=== PATIENT | female | born 1995 | race African-American/Black ===

== ENCOUNTER 2019-04-13 12:22 | Inpatient (IN) | payer OTHER, MEDICAID ==
[~2019-04-13] VITALS: Ht 170.2 cm; Wt 68.5 kg
[2019-04-13 13:14] LABS: BASOPHILS % 0.3 % (0.0-2.0); EOSINOPHILS % 0.2 % (0.0-5.0); HEMATOCRIT. 34.3 % (36.0-48.0); HEMOGLOBIN. 12.1 g/dL (12.0-16.0); LYMPHOCYTES % 23.8 % (20.0-50.0); MEAN CORPUSCULAR HEMOGLOBIN 31.3 pg (28.0-32.0); MEAN PLATELET VOLUME 6.6 fl (7.4-10.4); MONOCYTES % 8.2 % (2.0-8.0); NEUTROPHILS % 67.5 % (40.0-76.0); PLATELET 307 x1000/uL (130-400); RED BLOOD CELL COUNT 3.86 mill/uL (4.2-5.4); RED CELL DISTRIBUTION WIDTH 13.4 % (11.6-14.6)
[2019-04-13 13:18] LABS: CHLORIDE 108 mEq/L (98-107)
[2019-04-13 14:05] VITALS: BP 114/58
[2019-04-13 15:15] VITALS: BP 108/54
[2019-04-13 16:22] LABS: CLARITY URINE TURBID (CLEAR); COLOR URINE RED (YELLOW); KETONES URINE NEGATIVE (NEGATIVE); LEUKOCYTE ESTERASE URINE 2+ (NEGATIVE); NITRITE URINE POSITIVE (NEGATIVE); OCCULT BLOOD URINE 3+ (NEGATIVE); PH URINE >=9.0 (4.5-8.0); PROTEIN URINE 2+ (NEGATIVE); SPECIFIC GRAVITY URINE 1.007 (1.005-1.030); UROBILINOGEN URINE 0.2 E.U./dL (0.2-1.0)
[2019-04-13] MEDS ORDERED: IBUPROFEN 400MG TABLET PO PRN (17:00)
[2019-04-13] MEDS ORDERED: IBUPROFEN 800MG TABLET PO PRN (17:00)
[2019-04-13 18:44] LABS: HEPATITIS B SURFACE ANTIGEN NEGATIVE
[2019-04-13] MEDS: CEPHALEXIN 250MG CAPSULE PO SCH (19:14)
[2019-04-13 19:40] VITALS: BP 108/61
[2019-04-14] MEDS: CEPHALEXIN 250MG CAPSULE PO SCH ×2 (00:24→06:13)
[2019-04-14 05:00] VITALS: BP 116/86
[2019-04-14 06:28] LABS: BASOPHILS % 0.5 % (0.0-2.0); EOSINOPHILS % 0.4 % (0.0-5.0); HEMATOCRIT. 31.4 % (36.0-48.0); HEMOGLOBIN. 11.1 g/dL (12.0-16.0); LYMPHOCYTES % 25.1 % (20.0-50.0); MEAN CORPUSCULAR HEMOGLOBIN 31.2 pg (28.0-32.0); MEAN CORPUSCULAR VOLUME 88.1 fL (81.0-99.0); MEAN PLATELET VOLUME 6.8 fl (7.4-10.4); MONOCYTES % 9.1 % (2.0-8.0); NEUTROPHILS % 64.9 % (40.0-76.0); PLATELET 288 x1000/uL (130-400); RED BLOOD CELL COUNT 3.56 mill/uL (4.2-5.4); RED CELL DISTRIBUTION WIDTH 13.5 % (11.6-14.6)
[2019-04-14 08:20] VITALS: BP 108/76
== END 2019-04-14 12:30 | disposition home or self-care (01) | DRG 776 ==
LOC: 8 EST LDRP 12:22 → OBSVTOIN 12:22 → 8 EST LDRP 13:20 → 8EST 14:13
PROVIDERS: ADMIT Obstetrics & Gynecology; ATTEND Obstetrics & Gynecology
DX: Z39.0 Encounter for care and examination of mother immediately after delivery (principal)
CPT/HCPCS: 36415; 80307; 86592; 86703; 86762; 86850; 86900; 87340; 99281

== ENCOUNTER 2021-09-05 18:31 | Emergency (ER) | payer MEDICAID, OTHER ==
[~2021-09-05] VITALS: Ht 172.7 cm; Wt 64.0 kg
[2021-09-05 18:44] VITALS: BP 123/78
== END 2021-09-05 19:14 | disposition left against medical advice (07) ==
LOC: ER 18:31
DX: F10.129 Alcohol abuse with intoxication, unspecified (principal); Y90.9 Presence of alcohol in blood, level not specified
CPT/HCPCS: 99283